=== PATIENT | male | born 1975 | race Caucasian/White ===

== ENCOUNTER → 2020-10-19 | Outpatient (CLI) | payer BC | END | disposition home or self-care (01) ==

== ENCOUNTER → 2023-08-20 | Outpatient (CLI) | payer BC ==
--- NOTE | 2023-08-27 05:14 | CT ---
EXAMINATION TYPE: CT cervical spine wo con CT DLP: 824 mGycm, Automated exposure control for dose reduction was used. DATE OF EXAM: 08/20/2023 5:38 PM COMPARISON: . CLINICAL INDICATION:Male, 47 years old with history of M54.12 RADICULOPATHY, CERVICAL REGION; PHH, Ch ronic neck and shoulder pain TECHNIQUE: Axial CT images from the skull base to the inferior aspect of T2 we obtained without intra venous contrast. Coronal and sagittal reformatted images were also reviewed. Contrast used: mL of , (if blank None) Oral contrast used: (if blank None) Cervical spine: Fracture: None seen. Osseous structures, spinal canal/neural foramina: Mild multilevel degenerative disc disease, greatest at C4-C5, C5-C6, C6-7. Facet disease is minimal. At C3-C4, there is mild/moderate right neural juma inal stenosis. At C5-6, mild spinal canal and neural foraminal stenoses. At C6-7, mild to moderate le ft and mild right neuroforaminal stenosis. Mild spinal canal stenosis. Vertebral alignment: No traumatic malalignment. Cervical lordosis is mildly reduced. Mild degenerativ e anterolisthesis C4 and C5 measures 2 mm. Neck soft tissues: No acute finding.. Other: Lung apices show no acute infiltrate or pneumothorax. Extensive mucosal thickening throughout the imaged bilateral ethmoid air cells, mild mucosal thickeni ng of the sphenoid and maxillary sinuses. The mastoid air cells are clear. IMPRESSION: 1. No evidence of cervical spine fracture or traumatic malalignment. 2. Mild/moderate cervical spondylosis. 3. Pansinus mucosal thickening.
== END | disposition home or self-care (01) ==
LOC: RADCTMAIN 17:20
PROVIDERS: ATTEND Orthopaedic Surgery
DX: M47.22 Other spondylosis with radiculopathy, cervical region (principal); J34.89 Other specified disorders of nose and nasal sinuses
CPT/HCPCS: 72125

== ENCOUNTER → 2023-08-24 | Outpatient (CLI) | payer BC ==
[~2023-08-24] MED LIST: REGADENOSON 0.4 MG/5 ML SYRINGE IV PRN
--- NOTE | 2023-08-24 10:56 | NM ---
EXAMINATION TYPE: NM stress lexiscan cardiolite DATE OF EXAM: 08/24/2023 COMPARISON: NONE CLINICAL INDICATION: Male, 47 years old with history of I51.7 CARDIOMEGALY; TECHNIQUE: After the intravenous administration of 9.88 mCi Tc 99m Sestamibi - Cardiolite resting SP ECT images acquired 45 minutes post injection. The patient received 0.4mg Lexiscan, 25.5 mCi Tc 99m Sestamibi - Stress images obtained [address] injection FINDINGS: Review of stress and rest SPECT images demonstrates no distinct perfusion abnormality. Gated analysi s shows normal wall motion with an estimated left ventricular ejection fraction of 55 %. IMPRESSION: No scintigraphic evidence for reversible ischemia.
--- NOTE | 2023-08-24 12:55 | CA ---
Lexiscan Nuclear Stress Test Report Name: Vazquez La Exam Date: 08/24/2023 09:57 Exam Location: [facility] Ht (in): 73 Wt (lb): 275 BSA: 2.46 Ordering Phys: Casper Blackwood MD Referring Phys: Marizol Domígnuez Technologist: Sukhdev Lopes Age: 47 Gender: M : 1975 Procedure CPT: Indications: I51.7 Cardiomegaly ICD-10 Codes: Patient History: HTN, PRIOR SMOKER Medications: BP MED Meds past 24 hrs: Pretest Chest Pain: STRESS TEST Lexiscan Protocol Exercise Duration (min:sec): 01:[address] Depressions (mm): Angina Score: Bah Score: Resting HR (bpm): 76 Peak HR (bpm): 102 Resting BP (mmHg): 138 / 88 Peak BP (mmHg): 146 / 86 MPHR: 173 Target HR: 147 % MPHR: 59 METS: 1.0 Total Dose: Peak Dose: Atropine: Double Product: 94609 BP Response: Stress Termination: INFUSION COMPLETE Stress Symptoms: NO SYMPTOMS Stress Summary: ECG ANALYSIS Resting ECG: Sinus rhythm. Normal conduction. No arrhythmias. Nonspecific ST-T abnormality. Stress ECG: No ECG changes from baseline with Lexiscan infusion. CONCLUSIONS No ECG evidence of ischemia with Lexiscan infusion. Nuclear test results to follow. Dr. Kitty Rehman MD (Electronically Signed) Final Date: 24 Aug 2023 12:54
== END | disposition home or self-care (01) ==
LOC: RADNMMAIN 08:11
PROVIDERS: ATTEND Family Medicine
DX: I11.9 Hypertensive heart disease without heart failure (principal); Z87.891 Personal history of nicotine dependence
CPT/HCPCS: 93017; 78452; A9500; J2785

== ENCOUNTER → 2024-05-04 | Outpatient (CLI) | payer BC ==
--- NOTE | 2024-05-04 16:22 | US ---
EXAMINATION TYPE: US scrotum with doppler. 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 No injury. No redness or swelling TECHNIQUE: Grayscale, color Doppler and spectral Doppler imaging of the scrotum. FINDINGS: EXAM MEASUREMENTS: TESTICLES: Right Testicle: 3.3 x 3.3 x 2.0 cm Left Testicle: 3.1 x 2.1 x 3.4 cm EPIDIDYMIS HEAD: Right Epididymis: 0.8 x 1.0 x 0.9 cm Left Epididymis: 1.1 x 1.0 x 0.6 cm Doppler performed to assess for testicular vascularity; good bilateral color flow and spectral wavefo andrae are seen. Presence of hydroceles: No Presence of varicoceles: Bilateral At area of right teste palpable, epididymal tail and cluster of prominent vessels/varicoceles seen. IMPRESSION: No suspicious focal intratesticular mass. A varicocele is seen at the palpable abnormalit y inferior to the right testicle. [facility], , 05/04/2024 4:20 PM
== END | disposition home or self-care (01) ==
LOC: RADUSWWP 15:43
PROVIDERS: ATTEND Family Medicine
DX: I86.1 Scrotal varices (principal); N50.89 Other specified disorders of the male genital organs
CPT/HCPCS: 76870; 93975